=== PATIENT | female | born 1990 | race Caucasian/White ===

== ENCOUNTER 2016-08-29 04:30 | Inpatient (IN) | payer OTHER ==
[~2016-08-29] VITALS: Ht 154.9 cm; Wt 93.2 kg
[2016-08-29] VITALS (10 sets, daily range): BP systolic 109–140; BP diastolic 60–82; PULSE 60–82; RESP 16–19; Ht 154.9 cm; Wt 93.2 kg
[~2016-08-29 04:30] MED LIST: BUDE3CAP PO; CIPR500T4 PO; FLUC200T36 NGT; MESA400C PO; METR500T PO
[2016-08-29] MEDS ORDERED: METHYLERGONOVINE 0.2 MG INJ IM PRN ×2 (05:00→12:30)
[2016-08-29] MEDS ORDERED: MISOPROSTOL 200 MCG TAB PR PRN ×2 (05:00→12:30)
[2016-08-29] MEDS ORDERED: OXYTOCIN 30 UNITS/LR 500 ML IV PRN ×2 (05:00→12:30)
[2016-08-29] MEDS ORDERED: CARBOPROST 250 MCG INJ IM PRN ×2 (05:00→12:30)
[2016-08-29] MEDS ORDERED: CEFAZOLIN 2 GM/50 ML (PMX) 50 ML IV SCH (05:00)
[2016-08-29] MEDS ORDERED: OXYTOCIN 30 UNITS/LR 500 ML IV SCH (05:00)
[2016-08-29] MEDS: LACTATED RINGER'S 1,000 ML IV SCH ×2 (05:37→06:44)
[2016-08-29 05:57] LABS: ADD SCAN DIFF NO
[2016-08-29 06:04] LABS: BASOPHILS % 0.4 % (0.0-2.0); EOSINOPHILS # 0.2 10^3/ul (0.0-0.5); EOSINOPHILS % 2.1 % (0.0-7.0); HEMATOCRIT 28.7 % (37.0-47.0); HEMOGLOBIN 8.8 g/dl (12.0-16.0); LYMPHOCYTES # 2.5 10^3/ul (0.8-2.9); LYMPHOCYTES % 32.2 % (15.0-51.0); MEAN CORPUSCULAR HEMOGLOBIN 22.7 pg (29.0-33.0); MEAN CORPUSCULAR HGB CONC 30.7 g/dl (32.0-37.0); MEAN CORPUSCULAR VOLUME 74.2 fl (82.0-101.0); MEAN PLATELET VOLUME 10.2 fl (7.4-10.4); MONOCYTE # 0.6 10^3/ul (0.3-0.9); MONOCYTES % 7.7 % (0.0-11.0); NEUTROPHIL # 4.4 10^3/ul (1.6-7.5); NEUTROPHILS % 56.9 % (39.0-77.0); PLATELET COUNT 215 10^3/UL (140-415); RED BLOOD COUNT 3.87 10^6/ul (4.20-5.40); WHITE BLOOD COUNT 7.7 10^3/ul (4.8-10.8)
[2016-08-29] MEDS ORDERED: PREN1TAB79 PO (06:08)
[2016-08-29 06:21] LABS: PARTIAL THROMBOPLASTIN TIME 27.9 Sec (25.0-35.0); PROTIME 13.2 Sec (12.2-14.2)
[2016-08-29] MEDS ORDERED: LACTATED RINGER'S 1,000 ML IV ONE (06:30)
[2016-08-29 07:05] LABS: ADD UMIC YES; URINE BILIRUBIN (Dip) NEGATIVE (NEGATIVE); URINE BLOOD (Dip) NEGATIVE (NEGATIVE); URINE COLOR LT. YELLOW (YELLOW); URINE GLUCOSE (Dip) NEGATIVE (NEGATIVE); URINE KETONES (Dip) NEGATIVE (NEGATIVE); URINE LEUKOCYTE ESTERASE (Dip) 1+ (NEGATIVE); URINE NITRITE (Dip) NEGATIVE (NEGATIVE); URINE TOTAL PROTEIN (Dip) NEGATIVE (NEGATIVE); URINE UROBILINOGEN (Dip) 0.2 E.U./dL (0.1-1.0)
[2016-08-29 07:19] LABS: URINE RBCS 0-2 /HPF (0)
[2016-08-29] MEDS: OXYTOCIN 30 UNITS/LR 500 ML IV SCH ×3 (07:30→22:05)
[2016-08-29] MEDS ORDERED: FENTAnyl 50 MCG/ML VIAL ONE (07:46)
[2016-08-29] MEDS ORDERED: EPHEDrine SULFATE 50 MG/5 ML SYG ONE (07:46)
[2016-08-29] MEDS ORDERED: morphine SULFATE/PF (10 MG/10 ML) INJ ONE (07:47)
[2016-08-29] MEDS ORDERED: PHENYLephrine (100 MCG/ML) 5ML SYG ONE (07:47)
[2016-08-29] MEDS ORDERED: DEXAMETHASONE 4 MG/ML 1 ML INJ ONE (08:30)
[2016-08-29] MEDS ORDERED: ONDANSETRON 4 MG INJ ONE (08:30)
[2016-08-29] MEDS ORDERED: HYDROmorphONE 1 MG/ML SYG IV PRN (09:00)
[2016-08-29] MEDS ORDERED: NALOXONE (0.4 MG/ML) INJ IV PRN (09:00)
[2016-08-29] MEDS ORDERED: ONDANSETRON 4 MG INJ IV PRN (09:00)
[2016-08-29] MEDS ORDERED: ZOLPIDEM 5 MG TAB PO PRN (09:00)
[2016-08-29] MEDS ORDERED: DIPHENHYDRAMINE 50 MG INJ IV PRN (09:00)
--- NOTE | 2016-08-29 09:18 | HP ---
Date/Time of Note Date/Time of Note DATE: 08/29/16 TIME: 09:07 OB - History Hx of Present Free Text/Dictation This is a 25 years old white female 5 para 1 spontaneous AB 2 induce AV history of 1 previous admitted to [facility] at 39 weeks and 2 days to undergo a repeat this patient has [facility] the [facility] her has been complicated with Crohn disease which has been in remission recently, chronic anemia with hemoglobin of 8.5 Chief Complaint: History of previous 39 weeks and 2 Estimated Due Date: September 02, 2016 : 5 Para: 1 Spontaneous : 2 Therapeutic : 1 Ultrasounds: Normal mid trimester US Obstetrical Complications: Other (Crohn's disease) Medical Complications: Gastrointestinal Past Family/Social History * Past Medical, Surgical, Family and Obstetric Histories reviewed from chart. Blood Type: A- Rubella: immune RPR/VDRL: Negative GBS Status: Unknown HBsAG: Negative OB Admission Exam Vital Signs Vital Signs Vital Signs Date Time Temp Pulse Resp B/P Pulse Ox O2 Delivery O2 Flow Rate FiO2 08/29/16 06:13 98.2 69 18 118/60 Room Air Physical Exam HEENT: WNL Heart: Rhythm Normal Lungs: Clear, Equal Abdomen: WNL Extremities: Edema Cervical Dilatation: None Effacement: 0% Station: -2 Membranes: Intact Heart Rate: 130's Accelerations: Accelerations Present Decelerations: No Decelerations Varibility: Moderate Contractions on Admission: >10 Minutes Apart Intensity: Mild Last 72 hours Lab Results CBC & BMP 08/29/16 05:35 OB Assessment/Plan Reason for admission: other (Repeat at 39 weeks and 2 days) Plan: Section Induction Method: other (Repeat at 39 weeks and 2 days) DANNY GUY MD August 29, 2016 09:18
--- NOTE | 2016-08-29 10:04 | OPR ---
DATE OF OPERATION: 08/29/2016 PREOPERATIVE DIAGNOSES: 1. Intrauterine at 39 weeks and 2 days. 2. History of previous section. POSTOPERATIVE DIAGNOSES: 1. Intrauterine at 39 weeks and 2 days. 2. History of previous section. OPERATION PERFORMED: Repeat transverse low cervical section. SURGEON: Danny Cool MD FINISHER MAP AND CHART: Judie Platt MD ANESTHESIA: Spinal. ANESTHESIOLOGIST: Marko Penny DO FINDINGS: Live baby boy with the 9 and 9 with nuchal cord x1 around the baby's neck. DETAILS OF THE PROCEDURE: Under satisfactory spinal anesthesia, the patient was prepped and draped and placed in supine position, tilted to the left. Pfannenstiel incision was made. Incision mika d through the subcutaneous tissue. Bleeders brought under control with electrocautery. Fascia inci sed to the length of the incision. Rectus muscle divided in midline. Peritoneum exposed, entered t hrough a transverse incision. Exploration of abdomen gravid uterus at term, normal appearing tubes and ovaries and extremely thinned out lower segment of the uterus. Bladder flap was developed. Tra nsverse incision was made in the lower segment of the uterus. Amniotic sac ruptured. Clear amnioti c fluid noted. Live baby boy was delivered from unengaged vertex with a nuchal cord x1. Nasal orop haryngeal suction was performed. Baby handed to the team for immediate attention. The pat ient received 20 units of Pitocin. Placenta delivered manually intact, which was low anterior and s ent to pathology. Uterine cavity cleaned with wet sponge and drainage established. Uterus closed i n 2 layers using Monocryl #1 in continuous fashion. Peritoneal cavity irrigated with warm saline. Sponge, needle and instrument reported to be correct. Abdominal peritoneum closed with 2-0 chromic catgut continuously. Rectus muscle approximated with few interrupted 2-0 chromic catgut. Fascia cl osed with #1 PDS in a continuous fashion. Subcutaneous tissue approximated with interrupted 2-0 chr omic catgut. The skin closed with norberto. Estimated blood loss 500 mL. Urine bag contained 200 m L of clear urine. Patient tolerated procedure well, transferred to recovery room in a good conditio n. Dictated By: DANNY COOL MD HF/NTS Conf#: [id number] DID#: [id number] CC: JUDIE PLATT MD;*[facility]*
[2016-08-29] MEDS: KETOROLAC 30 MG INJ IV PRN ×2 (10:15→21:14)
[2016-08-29] MEDS: HYDROmorphONE 1 MG/ML SYG IV PRN ×3 (10:56→20:15)
[2016-08-29] MEDS ORDERED: IBUPROFEN 600 MG TAB PO SCH (12:30)
[2016-08-29] MEDS ORDERED: OXYCODONE/ACETAMINOPHEN (5/325) TAB PO PRN (12:30)
[2016-08-29] MEDS ORDERED: LANOLIN 7 GM TUBE TOP PRN (12:30)
[2016-08-29] MEDS ORDERED: ACETAMINOPHEN/CODEINE #3 TAB PO PRN ×2 (12:30)
[2016-08-29] MEDS ORDERED: CEFAZOLIN 1 GM/50 ML (PMX) 50 ML IVPB SCH (12:30)
[2016-08-29] MEDS: SENNA/DOCUSATE NA (8.6MG/50MG) TAB PO SCH ×2 (15:02→20:55)
[2016-08-30] MEDS: OXYTOCIN 30 UNITS/LR 500 ML IV SCH ×6 (00:11→19:53)
[2016-08-30] MEDS: HYDROmorphONE 1 MG/ML SYG IV PRN ×2 (02:05→07:58)
[2016-08-30] MEDS: LACTATED RINGER'S 1,000 ML IV SCH ×3 (02:19→18:30)
[2016-08-30 03:45] VITALS: BP 116/55; PULSE 71; RESP 19
[2016-08-30] MEDS: KETOROLAC 30 MG INJ IV PRN (06:28)
[2016-08-30 07:58] VITALS: BP 132/79; PULSE 71; RESP 20
[2016-08-30] MEDS: SENNA/DOCUSATE NA (8.6MG/50MG) TAB PO SCH ×2 (08:58→20:23)
[2016-08-30 09:00] LABS: ADD SCAN DIFF NO
[2016-08-30] MEDS: IBUPROFEN 600 MG TAB PO SCH ×3 (09:00→18:00)
[2016-08-30 09:08] LABS: BASOPHILS % 0.3 % (0.0-2.0); EOSINOPHILS # 0.1 10^3/ul (0.0-0.5); EOSINOPHILS % 0.8 % (0.0-7.0); HEMATOCRIT 29.8 % (37.0-47.0); HEMOGLOBIN 9.4 g/dl (12.0-16.0); LYMPHOCYTES % 27.6 % (15.0-51.0); MEAN CORPUSCULAR HEMOGLOBIN 24.3 pg (29.0-33.0); MEAN CORPUSCULAR HGB CONC 31.5 g/dl (32.0-37.0); MEAN PLATELET VOLUME 10.3 fl (7.4-10.4); MONOCYTE # 0.8 10^3/ul (0.3-0.9); MONOCYTES % 7.1 % (0.0-11.0); NEUTROPHIL # 6.9 10^3/ul (1.6-7.5); NEUTROPHILS % 63.8 % (39.0-77.0); PLATELET COUNT 206 10^3/UL (140-415); RED BLOOD COUNT 3.87 10^6/ul (4.20-5.40); RED CELL DISTRIBUTION WIDTH 16.9 % (11.5-14.5); WHITE BLOOD COUNT 10.7 10^3/ul (4.8-10.8)
--- NOTE | 2016-08-30 10:12 | PN ---
Date/Time of Note Date/Time of Note DATE: 08/30/16 TIME: 10:06 OB Subjective Subjective Subjective Post day 1 Afebrile vital signs stable abdomen soft bowel sounds present, lochia moderate, patient had 2 units of packed cells due to pre anemia, hemoglobin today 9.4 hematocrit 29.8, physically stable, no complaint of lightheadedness, ambulation encouraged OB Assessment/Plan Reason for admission: other (Post day 1 hemoglobin 9.4 after 2 units of packed cells due to chronic anemia with a hemoglobin 8.5 on admission) DANNY GUY MD August 30, 2016 10:12
[2016-08-30] MEDS: OXYCODONE/ACETAMINOPHEN (5/325) TAB PO PRN ×3 (11:27→20:22)
[2016-08-30 12:00] VITALS: BP 121/77; PULSE 86; RESP 20
[2016-08-30 16:00] VITALS: BP 114/70; PULSE 83; RESP 18
[2016-08-30 20:00] VITALS: BP 121/73; PULSE 87; RESP 20
[2016-08-31] MEDS: OXYTOCIN 30 UNITS/LR 500 ML IV SCH ×3 (00:11→18:00)
[2016-08-31] MEDS: LACTATED RINGER'S 1,000 ML IV SCH ×2 (02:30→10:30)
[2016-08-31] MEDS: OXYCODONE/ACETAMINOPHEN (5/325) TAB PO PRN ×5 (03:02→20:55)
[2016-08-31 04:00] VITALS: BP 128/65; PULSE 83; RESP 18
[2016-08-31] MEDS: IBUPROFEN 600 MG TAB PO SCH ×4 (06:00→18:00)
[2016-08-31 08:00] VITALS: BP 136/77; PULSE 74; RESP 18
[2016-08-31] MEDS: SENNA/DOCUSATE NA (8.6MG/50MG) TAB PO SCH ×2 (09:00→13:51)
--- NOTE | 2016-08-31 12:35 | PN ---
Date/Time of Note Date/Time of Note DATE: 08/31/16 TIME: 12:34 OB Subjective Subjective Subjective Post day 2 Afebrile vital signs stable abdomen soft uterus firm incision dry bowel sounds present no bowel movement enema recommended ambulation encouraged DANNY GUY MD August 31, 2016 12:35
[2016-08-31] MEDS ORDERED: NA PHOSPHATE/BIPHOS 133 ML ENEMA PR ONE (13:00)
[2016-08-31 16:00] VITALS: BP 115/60; PULSE 58; RESP 18
[2016-08-31 19:40] VITALS: BP 122/75; PULSE 70; RESP 18
[2016-09-01] MEDS: OXYCODONE/ACETAMINOPHEN (5/325) TAB PO PRN ×3 (00:59→13:04)
[2016-09-01 04:10] VITALS: BP 133/73; PULSE 80; RESP 18
[2016-09-01] MEDS: IBUPROFEN 600 MG TAB PO SCH ×3 (05:57→12:00)
[2016-09-01 08:00] VITALS: BP 135/69; PULSE 69; RESP 19
[2016-09-01] MEDS: SENNA/DOCUSATE NA (8.6MG/50MG) TAB PO SCH (08:01)
[2016-09-01] MEDS ORDERED: DIPHTH/TET/ACEL PERTUSS (ADULT) 0.5 ML VIAL IM* ONE (09:00)
[2016-09-01 15:10] VITALS: BP 127/86; PULSE 68; RESP 18
--- NOTE | 2016-09-01 17:44 | PD.PPDC ---
STUNTMAN Discharge Instruction Condition Patient Condition: Good Activity/Restrictions Activity: Normal Activity May Shower Restrictions: No Exercising No Lifting No Driving No Sexual Activity Nothing in the Vagina No [place] No Tampons, douche Follow-up Follow-up with Physician: 5 Provider Information: Appointment clinic in 4-5 days to discontinue norberto wound wound care instructions discussed advised patient to make an appointment with the clinic next Sunday Return to clinic for [employer] Instructions: Fever greater than 101 Chills Worsening abdominal pain Excessive Vaginal Bleeding More than 2 pads per hour Unable to tolerate diet OB Instructions: Breast Tenderness Depression Blurried Vision Headache Surgical Instructions: Incisional Drainage Incisional Redness DANNY GUY MD September 01, 2016 17:44
--- NOTE | 2016-09-01 17:54 | DS ---
Date/Time of Note Date/Time of Note DATE: 09/01/16 TIME: 17:51 Discharge Summary Admission/Discharge Info Admit Date/Time August 29, 2016 at 04:30 Discharge Date/Time 2016 at 1747 Final Diagnosis Post repeat date 3 Patient Condition: Good Procedures Repeat section Hx of Present Illness 39 weeks history of previous Hospital Course Satisfactory uneventful the day of discharge patient's vital signs stable abdomen soft her incision inspected free of inflammation and infection patient had no problem with bowel function or urination recommended to make appointment with clinic in 4-5 days to discontinue norberto at the time of discharge received a prescription of analgesics Motrin and acetaminophen Home Meds Active Scripts Metronidazole* (Flagyl*) 500 Mg Tablet, 500 MG PO Q8 for 7 Days, TAB Prov:JUSTUS KOO MD 07/02/15 Ciprofloxacin Hcl* (Ciprofloxacin Hcl*) 500 Mg Tablet, 500 MG PO BID for 7 Days , TAB Prov:JUSTUS KOO MD 07/02/15 Fluconazole* (Diflucan*) 200 Mg Tab, 200 MG NGT DAILY for 7 Days, TAB Prov:JUSTUS KOO MD 07/02/15 Reported Medications Vit W-Ca,Fe,FA(<1 mg) ( Vitamins) 1 Each Tablet, 1 EACH PO DAILY, TAB 08/29/16 Mesalamine* (Delzicol*) 400 Mg Capsule.dr, 400 MG PO QID, #120 CAP 07/02/15 Budesonide EC* (Budesonide EC*) 3 Mg Capdr...er, 9 MG PO DAILY, TAB 07/02/15 Follow-up Plan Appointment clinic in 4-5 days to discontinue norberto Primary Care Provider Eleuterio Tony MD Time spent on discharge: < 30 minutes DANNY GUY MD September 01, 2016 17:54
== END 2016-09-01 18:30 | disposition home or self-care (01) | DRG 766 ==
LOC: L-D 04:30 → PP1 11:50
PROVIDERS: ADMIT Obstetrics & Gynecology; ATTEND Obstetrics & Gynecology
PROC: 10D00Z1 Extraction of Products of Conception, Low, Open Approach (ICD-10-PCS; principal; 2016-08-29 07:30)
PROC: 3E00X4Z Introduction of Serum, Toxoid and Vaccine into Skin and Mucous Membranes, External Approach (ICD-10-PCS; 2016-09-01)
DX: O34.211 Maternal care for low transverse scar from previous cesarean delivery (principal); O99.02 Anemia complicating childbirth; O99.613 Diseases of the digestive system complicating pregnancy, third trimester; Z23 Encounter for immunization; Z3A.39 39 weeks gestation of pregnancy; Z37.0 Single live birth
CPT/HCPCS: 36430; 81001; 85025; 85610; 85730; 86592; 86850; 86870; 86885; 86900; 86901; 86920; 90715; 94760; 99464; J0690; J1100; J1170; J1885; J2274; J2370; J2405; J2590; J2790; J3010; J7120; P9016